=== PATIENT | female | born 1950 | race Two or more races ===

== ENCOUNTER 2017-10-09 19:37 | Emergency (ER) | payer OTHER ==
[~2017-10-09] VITALS: Ht 152.4 cm; Wt 99.8 kg
[~2017-10-09 19:37] MED LIST: DIOVAN160 M1; SYNTHROID50 MCG; [UNRECOGNIZED DRUG - OTHER]
[2017-10-09] MEDS ORDERED: EVISTA60 MG PO (19:48)
[2017-10-09] MEDS ORDERED: TOPROL XL50 M1 PO (19:49)
== END 2017-10-09 21:46 | disposition home or self-care (01) ==
LOC: ER 19:37
DX: R30.0 Dysuria (principal); R10.2 Pelvic and perineal pain

== ENCOUNTER 2019-01-24 16:09 | Emergency (ER) | payer OTHER ==
[~2019-01-24] VITALS: Ht 152.4 cm; Wt 93.0 kg
[~2019-01-24 16:09] MED LIST changes: +EVISTA60 MG PO; +TOPROL XL50 M1 PO
== END 2019-01-24 19:45 | disposition home or self-care (01) ==
LOC: ER 16:09
DX: S02.2XXA Fracture of nasal bones, initial encounter for closed fracture (principal); W18.09XA Striking against other object with subsequent fall, initial encounter; M12.862 Other specific arthropathies, not elsewhere classified, left knee; M12.861 Other specific arthropathies, not elsewhere classified, right knee; Y93.89 Activity, other specified; Y92.89 Other specified places as the place of occurrence of the external cause; Y99.8 Other external cause status

== ENCOUNTER 2019-06-09 20:49 | Emergency (ER) | payer OTHER ==
[~2019-06-09] VITALS: Ht 154.9 cm; Wt 96.2 kg
[2019-06-09] MEDS ORDERED: ATACAND16 MG (20:59)
[2019-06-09] MEDS ORDERED: TOPROL XL100 MG (21:00)
== END 2019-06-09 22:51 | disposition home or self-care (01) ==
LOC: ER 20:49
DX: N39.0 Urinary tract infection, site not specified (principal)

== ENCOUNTER 2024-03-07 11:09 | Outpatient (CLI) | payer OTHER ==
[~2024-03-07 11:09] MED LIST changes: +ATACAND16 MG; +HYDROCHLOROTH12.5 M2; +TOPROL XL100 MG
== END 2024-03-07 11:12 | disposition home or self-care (01) ==
LOC: MRI 11:09
PROVIDERS: ATTEND Orthopaedic Surgery
DX: M54.50 Low back pain, unspecified (principal)
CPT/HCPCS: 72148

== ENCOUNTER 2024-03-08 08:59 | Outpatient (CLI) | payer OTHER ==
[2024-03-08 10:52] LABS: ALBUMIN 3.2 gm/dL (3.4-5.0); BILIRUBIN TOTAL 0.55 mg/dL (0.3-1.2); CALCIUM 9.1 mg/dL (8.5-10.1); CREATININE SERUM 0.66 mg/dL (0.55-1.02); GFR 88.03; GLOBULINA 3.2 G/DL (2.4-3.5); MAGNESIUM 2.4 mg/dL (1.8-2.4); PHOSPHOROUS 3.6 mg/dL (2.5-4.9); POTASSIUM 3.81 mEq/L (3.5-5.1); TOTAL PROTEIN 6.4 gm/dL (6.4-8.2)
[2024-03-09 11:07] LABS: CALCIUM IONIZED 4.9 mg/dL (4.5-5.6)
== END 2024-03-08 09:09 | disposition home or self-care (01) ==
LOC: LAB 08:59
PROVIDERS: ATTEND Orthopaedic Surgery
DX: E55.9 Vitamin D deficiency, unspecified (principal); M85.9 Disorder of bone density and structure, unspecified; E56.1 Deficiency of vitamin K; E21.3 Hyperparathyroidism, unspecified; E88.89 Other specified metabolic disorders; M81.8 Other osteoporosis without current pathological fracture

== ENCOUNTER 2024-04-05 08:05 | Outpatient (CLI) | payer OTHER | END 2024-04-05 08:06 | disposition home or self-care (01) | LOC: NUCLEAR 08:05 | PROVIDERS: ATTEND Orthopaedic Surgery | DX: E21.0 Primary hyperparathyroidism (principal) | CPT/HCPCS: 78070; A9500 ==

== ENCOUNTER → 2024-04-05 | Outpatient (CLI) | payer OTHER | END | disposition home or self-care (01) | LOC: MRI 11:37 | PROVIDERS: ATTEND Orthopaedic Surgery | DX: M25.562 Pain in left knee (principal); M23.92 Unspecified internal derangement of left knee | CPT/HCPCS: 73721 ==

== ENCOUNTER 2024-08-25 12:13 | Outpatient (CLI) | payer OTHER | END 2024-08-25 12:17 | disposition home or self-care (01) | LOC: RAD 12:13 | PROVIDERS: ATTEND Neurological Surgery | DX: M43.16 Spondylolisthesis, lumbar region (principal); M54.50 Low back pain, unspecified; M16.0 Bilateral primary osteoarthritis of hip ==